=== PATIENT | male | born 1955 | race African-American/Black ===

== ENCOUNTER 2021-03-18 12:41 | Emergency (ER) | payer OTHER ==
[~2021-03-18] VITALS: Ht 172.7 cm; Wt 67.1 kg
[2021-03-18 13:37] LABS: ABSOLUTE NEUTROPHILS 1.6 thou/uL (1.4-8.2); BASOPHILS 1.2 % (0.0-2.0); EOSINOPHILS 9.8 % (0.0-3.0); HEMATOCRIT 42.8 % (42.0-52.0); HEMOGLOBIN 14.2 gm/dL (14.0-18.0); LYMPHOCYTES 39.4 % (24.0-44.0); MCH 33.2 pg (26.0-34.0); MCHC 33.2 g/dL (28.0-37.0); MCV 99.8 fL (80.0-100.0); MONOCYTES 10.2 % (1.0-8.0); PLATELET COUNT 311 thou/uL (150-400); POLYS 39.4 % (36.0-66.0); RBC 4.29 mil/uL (4.50-6.00); RDW 15.5 % (10.5-14.5); WBC 4.1 thou/uL (4.0-11.0)
[2021-03-18 13:46] LABS: ANION GAP 10 mmol/L (7-16); BUN 11 mg/dL (7-18); CALCIUM 8.5 mg/dL (8.5-10.1); CHLORIDE 106 mmol/L (98-107); CO2 25 mmol/L (21-32); CREATININE 1.2 mg/dL (0.7-1.3); GLUCOSE 106 mg/dL (74-106); POTASSIUM 3.8 mmol/L (3.5-5.1); SODIUM 141 mmol/L (136-145)
[2021-03-18 13:54] LABS: TROPONIN-I <0.06 ng/mL (<0.06)
[2021-03-18] MEDS ORDERED: LISINOPRIL2.5 MG PO (14:31)
[2021-03-18 14:42] VITALS: BP 160/113
--- NOTE | 2021-03-18 15:33 | EKG ---
[address] [address] ELECTROCARDIOGRAM REPORT Name: KATHERINE BENAVIDEZ Room #: DEP ANA Harp#: [id number] Admission: 03/18/21 Attend Phys: Discharge: 03/18/21 Date of : 59 Report #: [id number] [facility] ED Test Date: 2021-03-18 Test Time: 12:49:12 Pat Name: KATHERINE BENAVIDEZ Department: Room: Gender: [employer]: : 1955 Requested By: Jefry Martino Order Number: [id number] MD: Jonatan Malik Measurements Intervals [place] Rate: 74 P: 69 HI: 146 QRS: 62 QRSD: 93 T: 58 QT: 406 QTc: 451 Interpretive Statements Sinus rhythm Left ventricular hypertrophy No previous ECG available for comparison Electronically Signed On 03-18-2021 15:33:19 CDT by Jonatan Malik [email or web address] <ELECTRONICALLY SIGNED> By: Jonatan Malik MD, [facility] 03/18/21 1533 1249 1249 Jonatan Malik MD, FACC /EPI
== END 2021-03-18 14:42 | disposition home or self-care (01) ==
LOC: ER 12:41
PROVIDERS: Nurse Practitioner
DX: I10 Essential (primary) hypertension (principal); R07.89 Other chest pain